=== PATIENT | female | born 2000 | race Caucasian/White ===

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

== ENCOUNTER 2019-08-05 10:19 | Emergency (ER) | payer BC ==
[~2019-08-05] VITALS: Ht 165 cm; Wt 63.0 kg
[~2019-08-05 10:19] MED LIST: PRD20T PO
[2019-08-05] MEDS ORDERED: AMOX500C2 PO (11:12)
--- NOTE | 2019-08-05 11:12 | ED EENT ---
History of Present Illness General Chief Complaint: Ear Problems Stated Complaint: R EAR PAIN Nursing Triage Note: PT CO OF R EAR PAIN STATES STARTED THIS AM, STATES HAD FLU OVER WEEKEND. DENIES FEVER TODAY STATES STARTED HURTING AROUND 0700 THIS AM RATES PAIN 8 Source: patient Exam Limitations: no limitations History of Present Illness Date Seen by Provider: Aug 05, 2019 Time Seen by Provider: 11:10 Initial Comments To ER with reports of right ear pain onset this morning, had nausea vomiting diarrhea over the weekend. Has taken nothing at home for the pain. Timing/Duration: abrupt Location: ear (R) Prearrival Treatment: no prearrival treatment Associated Symptoms: denies symptoms Allergies and Home Medications Allergies Coded Allergies: No Known Drug Allergies (Unverified , 11/13/18) Home Medications No Active Prescriptions or Reported Meds Patient Home Medication List Home Medication List Reviewed: Yes Review of Systems Review of Systems Constitutional: see HPI Eyes: No Symptoms Reported Ears: See HPI, Pain Nose: no symptoms reported Mouth: no symptoms reported Throat: no symptoms reported Respiratory: no symptoms reported Cardiovascular: no symptoms reported : No LMP: Jul 05, 2019 Musculoskeletal: no symptoms reported Skin: no symptoms reported Neurological: No Symptoms Reported Hematologic/Lymphatic: No Symptoms Reported Past Wdogcpx-Vlhwqx-Onrckr Hx Patient Social History Alcohol Use: Denies Use Recreational Drug Use: No Smoking Status: Never a Smoker 2nd Hand Smoke Exposure: No Recent Foreign Travel: No Contact w/Someone Who Travel: No Recent Infectious Disease Expo: No Recent Hopitalizations: No Ebola Symptoms: Denies Symptoms Listed Physical Abuse: No Sexual Abuse: No Seasonal Allergies Seasonal Allergies: No Past Medical History Orthopedic Respiratory: No Cardiac: No Neurological: No Genitourinary: No Gastrointestinal: No Musculoskeletal: No Endocrine: No HEENT: No Cancer: No Psychosocial: No Integumentary: No Blood Disorders: No Physical Exam Vital Signs Vital Signs - First Documented 08/05/19 10:45 Temp 36.8 Pulse 101 Resp 18 B/P (MAP) 116/77 Height, Weight, BMI Height: 5'6.00" Weight: 135lbs. 0oz. 61.780566yc; 23.00 BMI Method:Stated General Appearance: WD/WN, no apparent distress Eyes: bilateral eye normal inspection, bilateral eye PERRL, bilateral eye EOMI Ears: right ear TM red, right ear TM bulging; bilateral ear auricle normal, bilateral ear canal normal Neck: non-tender, full range of motion Respiratory: no respiratory distress, no accessory muscle use Neurologic/Psychiatric: alert, normal mood/affect, oriented x 3 Skin: normal color, warm/dry Progress/Results/Core Measures Results/Orders My Orders Orders - ROSHNI HUANG APRN Ibuprofen Tablet (Motrin Tablet) (08/05/19 11:15) Vital Signs/I&O 08/05/19 10:45 Temp 36.8 Pulse 101 Resp 18 B/P (MAP) 116/77 Departure Impression Primary Impression: Otitis media of right ear Qualified Codes: H66.001 - Acute suppurative otitis media without spontaneous rupture of ear drum, right ear Disposition: HOME, SELF-CARE Condition: Stable Departure-Patient Inst. Decision time for Depature: 11:12 Referrals: NO,LOCAL PHYSICIAN (PCP/Family) Primary Care Physician Patient Instructions: Ear Infections (Otitis Media) Add. Discharge Instructions: 1. Tylenol and appropriate for pain 2. Antibiotics as directed 3. Return to ER for any concerns. All discharge instructions reviewed with patient and/or family. Voiced understanding. Scripts Amoxicillin (Amoxicillin) 500 Mg Capsule 500 MG PO TID, #21 CAP 0 Refills Prov: ROSHNI HUANG APRN 08/05/19 ROSHNI HUANG APRN Aug 05, 2019 11:12 POS
[2019-08-05] MEDS ORDERED: IBUPROFEN 800 MG (MOTRIN) TAB PO ONE (11:15)
== END 2019-08-05 11:25 | disposition home or self-care (01) ==
LOC: EDUNIT# 10:19 → ER 10:20
DX: H66.91 Otitis media, unspecified, right ear (principal)
CPT/HCPCS: 99282

== ENCOUNTER 2019-08-11 09:09 | Emergency (ER) | payer BC ==
[~2019-08-11] VITALS: Ht 165 cm; Wt 67.7 kg
[~2019-08-11 09:09] MED LIST changes: +AMOX500C2 PO
--- NOTE | 2019-08-11 10:02 | NUR ---
NOTIFIED OF BUSY ER WITH DR IN WITH A SERIOUS PT. DENIES NEEDS AT THIS TIME.
--- NOTE | 2019-08-11 10:39 | NUR ---
PT RESTING IN BED AT THIS TIME.
[2019-08-11] MEDS ORDERED: CEFD300C3 PO (10:48)
[2019-08-11] MEDS ORDERED: PRD20T PO (10:48)
--- NOTE | 2019-08-11 10:48 | ED EENT ---
History of Present Illness General Chief Complaint: Ear Problems Stated Complaint: DOUBLE EAR INFECTION;TROUBLE HEARING Nursing Triage Note: ARRIVED VIA AMB TO ROOM 09. COMPLAINS OF ONGOING BILAT EAR INFECTION. STATES SHE IS HAVING PAIN AND TROUBLE HEARING. Source: patient Exam Limitations: no limitations History of Present Illness Date Seen by Provider: Aug 11, 2019 Time Seen by Provider: 10:45 Initial Comments R with bilateral earache, she was seen here on 08/05/19 and given amoxicillin, has been taking that but denies improvement. She has runny nose, sore throat. No fevers. She states that as a child she had to have her ears "drained" occasionally. Timing/Duration: abrupt Severity: moderate Location: ear (R), ear (L) Prearrival Treatment: prescription meds Associated Symptoms: denies symptoms Allergies and Home Medications Allergies Coded Allergies: No Known Drug Allergies (Unverified , 11/13/18) Home Medications Amoxicillin 500 Mg Capsule, 500 MG PO TID Prescribed by: ROSHNI HUANG on 08/05/19 1112 Patient Home Medication List Home Medication List Reviewed: Yes Review of Systems Review of Systems Constitutional: see HPI; No chills, No fever Eyes: No Symptoms Reported Ears: See HPI, Pain Nose: no symptoms reported Mouth: no symptoms reported Throat: no symptoms reported Respiratory: no symptoms reported Cardiovascular: no symptoms reported : No LMP: Jul 10, 2019 Musculoskeletal: no symptoms reported Past Rcguzjo-Wvyufx-Cliabx Hx Patient Social History Alcohol Use: Denies Use Recreational Drug Use: No Smoking Status: Never a Smoker 2nd Hand Smoke Exposure: No Recent Foreign Travel: No Contact w/Someone Who Travel: No Recent Infectious Disease Expo: No Recent Hopitalizations: No Seasonal Allergies Seasonal Allergies: No Past Medical History Surgeries: Yes Orthopedic Respiratory: No Cardiac: No Neurological: No Genitourinary: No Gastrointestinal: No Musculoskeletal: No Endocrine: No HEENT: No Cancer: No Psychosocial: No Integumentary: No Blood Disorders: No Physical Exam Vital Signs Vital Signs - First Documented 08/11/19 09:10 Temp 36.7 Pulse 65 Resp 16 B/P (MAP) 107/73 Pulse Ox 97 O2 Delivery Room Air Height, Weight, BMI Height: 5'6.00" Weight: 135lbs. 0oz. 61.434983do; 24.00 BMI Method:Stated General Appearance: WD/WN, no apparent distress Eyes: bilateral eye normal inspection, bilateral eye PERRL, bilateral eye EOMI Ears: bilateral ear auricle normal, bilateral ear canal normal, bilateral ear TM dull, bilateral ear TM red Neck: non-tender, full range of motion Gastrointestinal: non tender, soft Neurologic/Psychiatric: alert, normal mood/affect, oriented x 3 Progress/Results/Core Measures Results/Orders Vital Signs/I&O 08/11/19 09:10 Temp 36.7 Pulse 65 Resp 16 B/P (MAP) 107/73 Pulse Ox 97 O2 Delivery Room Air Departure Impression Primary Impression: Bilateral otitis media Qualified Codes: H66.003 - Acute suppurative otitis media without spontaneous rupture of ear drum, bilateral Disposition: HOME, SELF-CARE Condition: Stable Departure-Patient Inst. Decision time for Depature: 10:46 Referrals: PERRY GILLIS MD NO,LOCAL PHYSICIAN (PCP) Primary Care Physician Patient Instructions: Ear Infections (Otitis Media) Add. Discharge Instructions: 1. Stop the amoxicillin, start the new antibiotic 2. Steroids and antibiotic as directed. Call Dr. Gillis today to make an appointment to be seen soon as he can get you in. Scripts Prednisone (Prednisone) 20 Mg Tab 40 MG PO DAILY, #8 TAB 0 Refills Prov: ROSHNI HUANG LEHR TENDER 08/11/19 Cefdinir (Cefdinir) 300 Mg Capsule 300 MG PO BID, #14 CAP 0 Refills Prov: ROSHNI HUANG LEHR TENDER 08/11/19 ROSHNI HUANG LEHR TENDER Aug 11, 2019 10:48 POS
== END 2019-08-11 10:52 | disposition home or self-care (01) ==
LOC: EDUNIT# 09:09 → ER 09:10
DX: H66.93 Otitis media, unspecified, bilateral (principal)
CPT/HCPCS: 99282

== ENCOUNTER → 2020-06-13 | Outpatient (CLI) | payer BC, OTHER ==
[~2020-06-13] MED LIST changes: +CEFD300C3 PO
--- NOTE | 2020-06-13 13:09 | Diagnostic Imaging Report ---
INDICATION: Pain in the lateral right breast. FINDINGS: Sonographic interrogation of the area of pain in the lateral right breast was performed. There is heterogeneous breast tissue at this location but no discrete mass or fluid collection is seen. IMPRESSION: No sonographic abnormality is detected. ACR BI-RADS Category 1: Negative. Dictated by: Dictated on workstation # [id number]
== END ==
LOC: RAD 12:30
PROVIDERS: ATTEND Nurse Practitioner Family
DX: N63.10 Unspecified lump in the right breast, unspecified quadrant (principal)

== ENCOUNTER 2021-02-19 15:26 | Emergency (ER) | payer OTHER ==
[~2021-02-19] VITALS: Ht 165 cm; Wt 67.7 kg
[~2021-02-19 15:26] MED LIST changes: +LORazepam INJ 2 MG/ML (ATIVAN) VIAL ONE; +NS IV 1000 ML 1,000 ML ONE; +ONDANSETRON 4 MG/2 ML (SDV) Z0FRAN ONE
--- NOTE | 2021-02-19 15:41 | ED Respiratory ---
General Chief Complaint: Respiratory Problems Stated Complaint: TROUBLE BREATHING,ARMS CURLED,WEAK Source: patient Exam Limitations: no limitations History of Present Illness Date Seen by Provider: February 19, 2021 Time Seen by Provider: 15:38 Initial Comments To ER with reports of trouble breathing, arms curled in weakness nausea vomitin g. The symptoms were sudden in onset while she was sitting on the couch watching TV. Gentleman who is with her states she might be a little hung over but was feeling fine this morning. No history of this. Timing/Duration: constant Severity: severe Prior Episodes/Possible Cause: no prior episodes Modifying Factors: Improves With Rest Associated Symptoms: shortness of breath Allergies and Home Medications Allergies Coded Allergies: No Known Drug Allergies (Unverified , 11/13/18) Home Medications Amoxicillin 500 Mg Capsule, 500 MG PO TID Prescribed by: ROSHNI HUANG on 08/05/19 1112 Cefdinir 300 Mg Capsule, 300 MG PO BID Prescribed by: ROSHNI HUANG on 08/11/19 1048 Prednisone 20 Mg Tab, 40 MG PO DAILY Prescribed by: ROSHNI HUANG on 08/11/19 1048 Patient Home Medication List Home Medication List Reviewed: Yes Review of Systems Review of Systems Constitutional: see HPI EENTM: see HPI Respiratory: see HPI, dyspnea on exertion, short of breath Cardiovascular: no symptoms reported Genitourinary: no symptoms reported Musculoskeletal: no symptoms reported Skin: no symptoms reported Psychiatric/Neurological: No Symptoms Reported Hematologic/Lymphatic: No Symptoms Reported Immunological/Allergic: no symptoms reported Past Ckkhsim-Kuwsfh-Cgsvwa Hx Patient Social History 2nd Hand Smoke Exposure: No Recent Hopitalizations: No Seasonal Allergies Seasonal Allergies: No Past Medical History Surgeries: Yes Orthopedic Respiratory: No Cardiac: No Neurological: No Genitourinary: No Gastrointestinal: No Musculoskeletal: No Endocrine: No HEENT: No Cancer: No Psychosocial: No Integumentary: No Blood Disorders: No Physical Exam Vital Signs - First Documented 02/19/21 02/19/21 15:40 16:09 Temp 36.0 Pulse 95 Resp 20 B/P (MAP) 159/108 (125) Pulse Ox 100 O2 Delivery Room Air Capillary Refill : Height: 5'6.00" Weight: 135lbs. 0oz. 61.096214ij; 24.00 BMI Method:Stated General Appearance: WD/WN, other (Alert and oriented very pleasant very anxious appearing. She is hyperventilating with a heart rate of 105, tremors in both hands, carpal spasms bilaterally.) HEENT: PERRL/EOMI, normal ENT inspection Neck: non-tender, full range of motion Respiratory: no respiratory distress, no accessory muscle use Cardiovascular: no murmur, tachycardia Gastrointestinal: normal bowel sounds, non tender, soft Neurologic/Psychiatric: alert, normal mood/affect, oriented x 3 Skin: normal color, warm/dry . Heart rate 105 sinus, oxygen saturation 100% on room air. Blood pressure 159/100. Respiratory rate is 20. IV started, 0.5 mg lorazepam ordered. Progress/Results/Core Measures Suspected Sepsis SIRS Temperature: Pulse: Respiratory Rate: Laboratory Tests 02/19/21 15:35: White Blood Count 8.2 Blood Pressure / Mean: Laboratory Tests 02/19/21 15:35: Creatinine 0.82, Platelet Count 231, Total Bilirubin 1.2H Results/Orders Lab Results Laboratory Tests Test 02/19/21 15:35 02/19/21 16:58 Range/Units White Blood Count 8.2 4.3-11.0 10^3/uL Red Blood Count 4.89 3.80-5.11 10^6/uL Hemoglobin 14.7 11.5-16.0 g/dL Hematocrit 42 35-52 % Mean Corpuscular Volume 86 80-99 fL Mean Corpuscular Hemoglobin 30 25-34 pg Mean Corpuscular Hemoglobin Concent 35 32-36 g/dL Red Cell Distribution Width 11.9 10.0-14.5 % Platelet Count 231 130-400 10^3/uL Mean Platelet Volume 9.7 9.0-12.2 fL Immature Granulocyte % (Auto) 0 % Neutrophils (%) (Auto) 58 42-75 % Lymphocytes (%) (Auto) 36 12-44 % Monocytes (%) (Auto) 5 0-12 % Eosinophils (%) (Auto) 1 0-10 % Basophils (%) (Auto) 0 0-10 % Neutrophils # (Auto) 4.7 1.8-7.8 X 10^3 Lymphocytes # (Auto) 3.0 1.0-4.0 X 10^3 Monocytes # (Auto) 0.4 0.0-1.0 X 10^3 Eosinophils # (Auto) 0.1 0.0-0.3 10^3/uL Basophils # (Auto) 0.0 0.0-0.1 10^3/uL Immature Granulocyte # (Auto) 0.0 0.0-0.1 10^3/uL D-Dimer <= 0.27 0.00-0.49 UG/ML Sodium Level 139 135-145 MMOL/L Potassium Level 3.6 3.6-5.0 MMOL/L Chloride Level 103 98-107 MMOL/L Carbon Dioxide Level 18 L 21-32 MMOL/L Anion Gap 18 H 5-14 MMOL/L Blood Urea Nitrogen 10 7-18 MG/DL Creatinine 0.82 0.60-1.30 MG/DL Estimat Glomerular Filtration Rate > 60 BUN/Creatinine Ratio 12 Glucose Level 116 H 70-105 MG/DL Calcium Level 10.2 H 8.5-10.1 MG/DL Corrected Calcium 8.5-10.1 MG/DL Total Bilirubin 1.2 H 0.1-1.0 MG/DL Aspartate Amino Transf (AST/SGOT) 27 5-34 U/L Alanine Aminotransferase (ALT/SGPT) 20 0-55 U/L Alkaline Phosphatase 43 40-136 U/L Total Protein 7.7 6.4-8.2 GM/DL Albumin 5.1 H 3.2-4.5 GM/DL Serum Test, Qualitative NEGATIVE NEGATIVE My Orders Orders - ROSHNI HUANG APRN Cbc With Automated Diff (02/19/21 15:37) Hcg,Qualitative Serum (02/19/21 15:37) Comprehensive Metabolic Panel (02/19/21 15:37) Fibrin Degradation Products (02/19/21 15:37) Ua Culture If Indicated (02/19/21 15:37) Ed Iv/Invasive Line Start (02/19/21 15:37) Lorazepam Injection (Ativan Injection) (02/19/21 15:45) Ondansetron Injection (Zofran Injectio (02/19/21 15:45) Ns Iv 1000 Ml (Sodium Chloride 0.9%) (02/19/21 15:45) Ct Head Wo (02/19/21 15:51) Ketorolac Injection (Toradol Injection) (02/19/21 16:30) Ondansetron Injection (Zofran Injectio (02/19/21 16:30) Lorazepam Injection (Ativan Injection) (02/19/21 16:30) Prochlorperazine Injection (Compazine In (02/19/21 17:00) Diphenhydramine Injection (Benadryl Inje (02/19/21 17:00) Medications Given in ED Current Medications Medications Dose Ordered Sig/Karena Route Start Time Stop Time Status Last Admin Dose Admin Ketorolac Tromethamine 15 mg ONCE ONCE IVP 02/19/21 16:30 02/19/21 16:31 DC 02/19/21 16:32 15 MG Lorazepam 0.5 mg ONCE PRN IVP 02/19/21 15:45 02/19/21 15:50 0.5 MG Lorazepam 2 mg STK-MED ONCE .ROUTE 02/19/21 15:26 02/19/21 15:35 DC 02/19/21 15:38 0.5 MG Ondansetron HCl 4 mg ONCE ONCE IVP 02/19/21 16:30 02/19/21 16:31 DC 02/19/21 16:32 4 MG Ondansetron HCl 4 mg STK-MED ONCE .ROUTE 02/19/21 15:25 02/19/21 15:35 DC 02/19/21 15:38 4 MG Sodium Chloride 1,000 ml @ ud STK-MED ONCE .ROUTE 02/19/21 15:25 02/19/21 15:35 DC 02/19/21 15:39 999 MLS/HR Vital Signs/I&O 02/19/21 02/19/21 15:40 16:09 Temp 36.0 Pulse 95 57 Resp 20 15 B/P (MAP) 159/108 (125) 127/79 (95) Pulse Ox 100 99 O2 Delivery Room Air Capillary Refill : Departure Communication (Admissions) 8643-Now reports headache 8. Will get CT head noncontrast. nausea is no better. still alert. HR has fallen to 82. 1650-feeling better nausea is gone much more relaxed. No longer has spasms of the hands. Respiratory rate has slowed. Blood pressure has fallen to 112/75, heart rate is 62. She still complains of a headache rated 7 out of 10 midline parietal. She just received Toradol. Discussed with her we give her another 15 or 20 minutes to let the Toradol work before giving additional medications. She agrees with this plan. She is up to the bathroom. Impression Primary Impression: Headache Additional Impression: Nausea & vomiting Disposition: 01 HOME, SELF-CARE Condition: Stable Departure-Patient Inst. Referrals: NO,LOCAL PHYSICIAN (PCP/Family) Primary Care Physician ROSHNI HUANG APRN February 19, 2021 15:40
[2021-02-19 15:44] LABS: BASOPHILS % (AUTO) 0 % (0-10); EOSINOPHILS # (AUTO) 0.1 10^3/uL (0.0-0.3); EOSINOPHILS % (AUTO) 1 % (0-10); HEMATOCRIT 42 % (35-52); HEMOGLOBIN 14.7 g/dL (11.5-16.0); LYMPHOCYTES % (AUTO) 36 % (12-44); MEAN CORPUSCULAR HEMOGLOBIN 30 pg (25-34); MEAN CORPUSCULAR HGB CONC 35 g/dL (32-36); MEAN CORPUSCULAR VOLUME 86 fL (80-99); MEAN PLATELET VOLUME 9.7 fL (9.0-12.2); MONOCYTES # (AUTO) 0.4 X 10^3 (0.0-1.0); MONOCYTES % (AUTO) 5 % (0-12); NEUTROPHILS # (AUTO) 4.7 X 10^3 (1.8-7.8); NEUTROPHILS % (AUTO) 58 % (42-75); PLATELET COUNT 231 10^3/uL (130-400); WHITE BLOOD COUNT 8.2 10^3/uL (4.3-11.0)
[2021-02-19] MEDS ORDERED: ONDANSETRON 4 MG/2 ML (SDV) Z0FRAN IVP ONE ×2 (15:45→16:30)
[2021-02-19] MEDS ORDERED: LORazepam INJ 2 MG/ML (ATIVAN) VIAL IVP PRN ×2 (15:45→16:30)
[2021-02-19] MEDS ORDERED: NS IV 1000 ML 1,000 ML IV SCH (15:45)
[2021-02-19 15:54] LABS: ALBUMIN 5.1 GM/DL (3.2-4.5); CHLORIDE 103 MMOL/L (98-107); POTASSIUM 3.6 MMOL/L (3.6-5.0); SODIUM 139 MMOL/L (135-145)
[2021-02-19 15:56] LABS: CALCIUM 10.2 MG/DL (8.5-10.1)
[2021-02-19 15:57] LABS: GLUCOSE 116 MG/DL (70-105); TOTAL PROTEIN 7.7 GM/DL (6.4-8.2)
[2021-02-19 15:58] LABS: BILIRUBIN,TOTAL 1.2 MG/DL (0.1-1.0); CARBON DIOXIDE 18 MMOL/L (21-32)
[2021-02-19 16:00] LABS: ALKALINE PHOSPHATASE 43 U/L (40-136); CREATININE SERUM 0.82 MG/DL (0.60-1.30); GFR ESTIMATED > 60
[2021-02-19 16:01] LABS: BUN/CREATININE RATIO 12
[2021-02-19 16:03] LABS: ALANINE AMINOTRANSFERASE 20 U/L (0-55)
--- NOTE | 2021-02-19 16:29 | Diagnostic Imaging Report ---
PROCEDURE: CT head without contrast. TECHNIQUE: Multiple contiguous axial images were obtained through the brain without the use of intravenous contrast. Auto Exposure Controls were utilized during the CT exam to meet ALARA standards for radiation dose reduction. INDICATION: Head pain. Nausea. No priors. There is no intracranial hemorrhage, hydrocephalus, edema, mass, mass effect or evidence for an elevation of the intracerebral pressures. There are no abnormal extra-axial fluid collections. The midline structures are nondisplaced. The orbits, sinuses and calvarium appeared nonacute. There is no mastoid effusion. IMPRESSION: Unremarkable CT head. Dictated by: Dictated on workstation # [id number]
[2021-02-19] MEDS ORDERED: KETOROLAC 30 MG/ML VIAL IVP ONE (16:30)
[2021-02-19] MEDS ORDERED: PROCHLORPERAZINE 10 MG/2ML INJ (COMPAZINE) IV ONE (17:00)
[2021-02-19] MEDS ORDERED: diphenhydrAMINE 50 MG/ML INJ (BENADRYL) IVP ONE (17:00)
[2021-02-19 17:04] LABS: BILIRUBIN,URINE NEGATIVE (NEGATIVE); CLARITY,URINE CLEAR; COLOR,URINE YELLOW; GLUCOSE, URINE (UA) NEGATIVE (NEGATIVE); KETONES,URINE TRACE (NEGATIVE); LEUKOCYTE ESTERASE ,URINE NEGATIVE (NEGATIVE); NITRITE,URINE NEGATIVE (NEGATIVE); PH,URINE 7.5 (5-9); PROTEIN,URINE NEGATIVE (NEGATIVE)
[2021-02-19 17:11] LABS: BACTERIA,URINE TRACE /HPF; SQUAMOUS EPITHELIAL CELL,UR RARE /HPF; WBC,URINE RARE /HPF
[2021-02-19 17:33] VITALS: BP 113/80
== END 2021-02-19 17:34 | disposition home or self-care (01) ==
LOC: EDUNIT# 15:26 → ER 15:27
DX: R11.2 Nausea with vomiting, unspecified (principal); R51.9 Headache, unspecified; R00.0 Tachycardia, unspecified
CPT/HCPCS: 36415; 70450; 80053; 81000; 84703; 85025; 85379

== ENCOUNTER 2023-04-15 14:53 | Emergency (ER) | payer OTHER ==
[~2023-04-15] VITALS: Ht 165.1 cm; Wt 65.8 kg
[~2023-04-15 14:53] MED LIST changes: -LORazepam INJ 2 MG/ML (ATIVAN) VIAL ONE; -NS IV 1000 ML 1,000 ML ONE; -ONDANSETRON 4 MG/2 ML (SDV) Z0FRAN ONE
--- NOTE | 2023-04-15 15:10 | ED Abdominal Pain ---
General Chief Complaint: Back Problems Stated Complaint: RT SIDE AND LOWER BACK PAIN Source of Information: Patient Exam Limitations: No Limitations History of Present Illness Date Seen by Provider: Apr 15, 2023 Time Seen by Provider: 15:04 Initial Comments 22-year-old female who is otherwise healthy presents to the emergency department today for right lower quadrant abdominal pain. It also radiates to her right lateral abdomen. Symptoms started this morning and have been persistent throughout the day. She denies fevers or chills but has had decreased appetite. No changes in bowel or bladder habits. She denies any vaginal symptoms. Last menstrual cycle was 23 March and normal timing and bleeding for her. She has never had similar pains in the past. She took 1 g of Tylenol prior to arrival which did not really help. She has not had any abdominal surgeries. All other systems reviewed and negative except documented per HPI. Voice recognition software was used to help create this chart Allergies and Home Medications Allergies Coded Allergies: No Known Drug Allergies (Unverified , 11/13/18) Patient Home Medication List Home Medication List Reviewed: Yes Amoxicillin (Amoxicillin) 500 Mg Capsule, 500 MG PO TID Prescribed by: ROSHNI HUANG on 08/05/19 1112 Cefdinir (Cefdinir) 300 Mg Capsule, 300 MG PO BID Prescribed by: ROSHNI HUANG on 08/11/19 1048 Prednisone (Prednisone) 20 Mg Tab, 40 MG PO DAILY Prescribed by: ROSHNI HUANG on 08/11/19 1048 Review of Systems Review of Systems Constitutional: see HPI Past Tkbtfek-Mwyxos-Vmlhxx Hx Patient Social History Tobacco Use?: No Use of E-Cig and/or Vaping dev: No Substance use?: No Alcohol Use?: No Seasonal Allergies Seasonal Allergies: No Past Medical History Surgeries: Yes Orthopedic Respiratory: No Cardiac: No Neurological: No Genitourinary: No Gastrointestinal: No Musculoskeletal: No Endocrine: No HEENT: No Cancer: No Psychosocial: No Integumentary: No Blood Disorders: No Physical Exam Vital Signs Vital Signs - First Documented 04/15/23 15:01 Temp 36.9 Pulse 112 Resp 18 B/P (MAP) 126/89 (101) O2 Delivery Room Air Capillary Refill : Height/Weight/BMI Height: 5'6.00" Weight: 135lbs. 0oz. 61.093870to; 24.00 BMI Method:Stated General Appearance: WD/WN, mild distress (Appears to be in pain) HEENT: normal ENT inspection, pharynx normal Neck: non-tender, supple Respiratory: chest non-tender, lungs clear, normal breath sounds, no respiratory distress, no accessory muscle use Cardiovascular: no murmur, tachycardia Gastrointestinal: normal bowel sounds, soft, no organomegaly, tenderness (Tenderness palpation right lower abdomen with voluntary guarding. No rebound tenderness. No mass organomegaly no skin changes) Extremities: normal range of motion, non-tender, normal inspection, no pedal edema, no calf tenderness Back: normal inspection, no CVA tenderness, no vertebral tenderness Neurologic/Psychiatric: alert, normal mood/affect, oriented x 3 Skin: normal color, warm/dry Progress/Results/Core Measures Results/Orders Lab Results Laboratory Tests Test 04/15/23 15:07 04/15/23 15:15 Range/Units Urine Color YELLOW Urine Clarity CLOUDY Urine pH 6.0 5-9 Urine Specific [place] 1.020 1.016-1.022 Urine Protein 2+ H NEGATIVE Urine Glucose (UA) NEGATIVE NEGATIVE Urine Ketones TRACE H NEGATIVE Urine Nitrite POSITIVE H NEGATIVE Urine Bilirubin NEGATIVE NEGATIVE Urine Urobilinogen 0.2 < = 1.0 MG/DL Urine Leukocyte Esterase 2+ H NEGATIVE Urine RBC (Auto) 3+ H NEGATIVE Urine RBC 2-5 H /HPF Urine WBC TNTC H /HPF Urine Squamous Epithelial Cells RARE /HPF Urine Crystals NONE /LPF Urine Bacteria MODERATE H /HPF Urine Casts NONE /LPF Urine Mucus NEGATIVE /LPF Urine Culture Indicated YES Urine Test NEGATIVE NEGATIVE White Blood Count 13.8 H 4.3-11.0 10^3/uL Red Blood Count 4.57 3.80-5.11 10^6/uL Hemoglobin 13.7 11.5-16.0 g/dL Hematocrit 40 35-52 % Mean Corpuscular Volume 88 80-99 fL Mean Corpuscular Hemoglobin 30 25-34 pg Mean Corpuscular Hemoglobin Concent 34 32-36 g/dL Red Cell Distribution Width 11.9 10.0-14.5 % Platelet Count 195 130-400 10^3/uL Mean Platelet Volume 10.1 9.0-12.2 fL Immature Granulocyte % (Auto) 0 % Neutrophils (%) (Auto) 84 H 42-75 % Lymphocytes (%) (Auto) 8 L 12-44 % Monocytes (%) (Auto) 8 0-12 % Eosinophils (%) (Auto) 0 0-10 % Basophils (%) (Auto) 0 0-10 % Neutrophils # (Auto) 11.5 H 1.8-7.8 10^3/uL Lymphocytes # (Auto) 1.1 1.0-4.0 10^3/uL Monocytes # (Auto) 1.1 H 0.0-1.0 10^3/uL Eosinophils # (Auto) 0.0 0.0-0.3 10^3/uL Basophils # (Auto) 0.0 0.0-0.1 10^3/uL Immature Granulocyte # (Auto) 0.1 0.0-0.1 10^3/uL Sodium Level 139 135-145 MMOL/L Potassium Level 3.5 L 3.6-5.0 MMOL/L Chloride Level 104 98-107 MMOL/L Carbon Dioxide Level 21 21-32 MMOL/L Anion Gap 14 5-14 MMOL/L Blood Urea Nitrogen 10 7-18 MG/DL Creatinine 0.84 0.60-1.30 MG/DL Estimat Glomerular Filtration Rate 100 BUN/Creatinine Ratio 12 Glucose Level 88 70-105 MG/DL Calcium Level 9.6 8.5-10.1 MG/DL Corrected Calcium 9.2 8.5-10.1 MG/DL Total Bilirubin 1.8 H 0.1-1.0 MG/DL Aspartate Amino Transf (AST/SGOT) 18 5-34 U/L Alanine Aminotransferase (ALT/SGPT) 17 0-55 U/L Alkaline Phosphatase 45 40-136 U/L Total Protein 7.1 6.4-8.2 GM/DL Albumin 4.5 3.2-4.5 GM/DL Lipase 27 8-78 U/L My Orders Orders - NEHEMIAS UREÑA DO Lipase (04/15/23 15:09) Ct Abdomen/Pelvis W (04/15/23 15:09) Comprehensive Metabolic Panel (04/15/23 15:09) Cbc With Automated Diff (04/15/23 15:09) Ns Iv 1000 Ml (Sodium Chloride 0.9%) (04/15/23 15:15) Fentanyl Inj (Sublimaze Injection) (04/15/23 15:15) Ondansetron Injection (Zofran Injectio (04/15/23 15:15) Ketorolac Injection (Toradol Injection) (04/15/23 15:15) Iohexol Injection (Omnipaque 350 Mg/Ml 1 (04/15/23 15:45) Received Contrast (Hold Metformin- Contr (04/15/23 15:45) Ns (Ivpb) 100 Ml (Sodium Chloride 0.9% 1 (04/15/23 15:45) Medications Given in ED Current Medications Medications Dose Ordered Sig/Karena Route Start Time Stop Time Status Last Admin Dose Admin Fentanyl Citrate 50 mcg ONCE ONCE IVP 04/15/23 15:15 04/15/23 15:16 DC 04/15/23 15:22 50 MCG Iohexol 100 ml ONCE ONCE IV 04/15/23 15:45 04/15/23 15:51 DC 04/15/23 15:53 75 ML Ketorolac Tromethamine 15 mg ONCE ONCE IVP 04/15/23 15:15 04/15/23 15:16 DC 04/15/23 15:22 15 MG Ondansetron HCl 4 mg ONCE ONCE IVP 04/15/23 15:15 04/15/23 15:16 DC 04/15/23 15:22 4 MG Sodium Chloride 100 ml ONCE ONCE IV 04/15/23 15:45 04/15/23 15:51 DC 04/15/23 15:53 80 ML Vital Signs/I&O 04/15/23 15:01 Temp 36.9 Pulse 112 Resp 18 B/P (MAP) 126/89 (101) O2 Delivery Room Air Departure Communication (Admissions) Initial differential diagnosis includes UTI, pyelonephritis, appendicitis, ovarian cyst, ovarian torsion, pelvic inflammatory disease, , ectopic . Urine is positive for urinary tract infection, likely early pyelonephritis given her symptoms up into her flank slightly. CT scan is negative for appendicitis, ovarian cyst which makes ovarian torsion less likely. No evidence of pelvic inflammatory disease, she has no concerns for STI and declines testing. She was given IV fentanyl and Toradol with improvement in her pain. She was also given IV Zofran with improvement in her nausea. test is negative. The remainder of her labs are significant only for mild hypokalemia and her chemistry and mild leukocytosis and her CBC. She does have a slight left shift as well. She is afebrile and nontoxic. She be discharged home with oral antibiotics and otherwise stable condition. Impression Primary Impression: UTI (urinary tract infection) Qualified Codes: N30.01 - Acute cystitis with hematuria Disposition: HOME, SELF-CARE Condition: Stable Departure-Patient Inst. Referrals: NO,LOCAL PHYSICIAN (PCP/Family) Primary Care Physician Patient Instructions: Urinary Tract Infection, Adult ED Add. Discharge Instructions: You are seen in the emergency department today for right-sided abdominal pain. You have a urinary tract infection. Your CT scan is unremarkable. There is no evidence for appendicitis, ovarian issues, kidney stone. I recommend you increase your fluids at home, rest as needed. Take the antibiotics as prescribed until they are gone. As discussed this may interact with control she will need to use other forms of contraception during use and for a few days after. Return to the emergency department for any severe concerns. Follow-up with your primary doctor for any nonemergent needs All discharge instructions reviewed with patient and/or family. Voiced understanding. Scripts Ciprofloxacin HCl (Ciprofloxacin HCl) 500 Mg Tablet 500 MG PO BID for 7 Days, #14 TAB Prov: NEHEMIAS UREÑA DO 04/15/23 NEHEMIAS UREÑA DO Apr 15, 2023 15:10
[2023-04-15] MEDS ORDERED: NS IV 1000 ML 1,000 ML IV SCH (15:15)
[2023-04-15] MEDS ORDERED: ONDANSETRON 4 MG/2 ML (SDV) Z0FRAN IVP ONE (15:15)
[2023-04-15] MEDS ORDERED: fentaNYL INJ 100 MCG/2 ML AMP IVP ONE (15:15)
[2023-04-15] MEDS ORDERED: KETOROLAC 15 MG/ML VIAL IVP ONE (15:15)
[2023-04-15 15:24] LABS: BILIRUBIN,URINE NEGATIVE (NEGATIVE); CLARITY,URINE CLOUDY; COLOR,URINE YELLOW; GLUCOSE, URINE (UA) NEGATIVE (NEGATIVE); KETONES,URINE TRACE (NEGATIVE); LEUKOCYTE ESTERASE ,URINE 2+ (NEGATIVE); NITRITE,URINE POSITIVE (NEGATIVE); PROTEIN,URINE 2+ (NEGATIVE)
[2023-04-15 15:25] LABS: BASOPHILS % (AUTO) 0 % (0-10); EOSINOPHILS % (AUTO) 0 % (0-10); HEMATOCRIT 40 % (35-52); HEMOGLOBIN 13.7 g/dL (11.5-16.0); LYMPHOCYTES # (AUTO) 1.1 10^3/uL (1.0-4.0); LYMPHOCYTES % (AUTO) 8 % (12-44); MEAN CORPUSCULAR HEMOGLOBIN 30 pg (25-34); MEAN CORPUSCULAR HGB CONC 34 g/dL (32-36); MEAN CORPUSCULAR VOLUME 88 fL (80-99); MEAN PLATELET VOLUME 10.1 fL (9.0-12.2); MONOCYTES # (AUTO) 1.1 10^3/uL (0.0-1.0); MONOCYTES % (AUTO) 8 % (0-12); NEUTROPHILS # (AUTO) 11.5 10^3/uL (1.8-7.8); NEUTROPHILS % (AUTO) 84 % (42-75); PLATELET COUNT 195 10^3/uL (130-400); WHITE BLOOD COUNT 13.8 10^3/uL (4.3-11.0)
[2023-04-15 15:34] LABS: BACTERIA,URINE MODERATE /HPF; SQUAMOUS EPITHELIAL CELL,UR RARE /HPF; WBC,URINE TNTC /HPF
[2023-04-15 15:34] LABS: ALBUMIN 4.5 GM/DL (3.2-4.5)
[2023-04-15 15:35] LABS: POTASSIUM 3.5 MMOL/L (3.6-5.0)
[2023-04-15 15:36] LABS: CALCIUM 9.6 MG/DL (8.5-10.1)
[2023-04-15 15:37] LABS: TOTAL PROTEIN 7.1 GM/DL (6.4-8.2)
[2023-04-15 15:39] LABS: BILIRUBIN,TOTAL 1.8 MG/DL (0.1-1.0)
[2023-04-15 15:40] LABS: CREATININE SERUM 0.84 MG/DL (0.60-1.30)
[2023-04-15] MEDS ORDERED: HOLD METFORMIN - RECEIVED CONTRAST 20 ML VIAL IV SCH (15:45)
[2023-04-15] MEDS ORDERED: NS 100 ML (IVPB) BAG IV ONE (15:45)
[2023-04-15] MEDS ORDERED: IOHEXOL 350 MG/ML 100 ML (OMNIPAQUE 350) VIAL IV ONE (15:45)
--- NOTE | 2023-04-15 16:02 | Diagnostic Imaging Report ---
EXAMINATION: CT abdomen and pelvis with intravenous contrast. TECHNIQUE: Multiple contiguous axial images were obtained through the abdomen and pelvis after the uneventful administration of intravenous contrast. All CT scans use one or more of the following dose optimizing techniques: automated exposure control, MA and/or KvP adjustment based on patient size and exam type or iterative reconstruction. HISTORY: RLQ pain COMPARISON: None available. FINDINGS: Lung bases: The lung bases are clear. Solid organs: The liver is normal without focal lesion. The gallbladder is normal. There is no biliary ductal dilation. Pancreas is normal. Spleen is normal. Adrenal glands are normal. The kidneys are normal without hydronephrosis. Bowel: The stomach and small bowel are normal without obstruction. The colon is normal. There are no secondary signs of acute appendicitis. Peritoneum: There is no intraperitoneal free fluid or free air. No suspicious lymphadenopathy. Vasculature: Normal without aneurysm. Musculoskeletal: No suspicious osseous lesion or compression fracture. 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 Pelvis: The uterus and adnexa are normal. The urinary bladder is normal. IMPRESSION: 1. No acute abnormality in the abdomen or pelvis. Dictated by: Dictated on workstation # [id number]
[2023-04-15] MEDS ORDERED: CIPROFLOXACIN 500 MG (CIPRO) TABLET PO STA (16:07)
[2023-04-15] MEDS ORDERED: CIPR500T5 PO (16:09)
[2023-04-15 16:15] VITALS: BP 133/75
== END 2023-04-15 16:15 | disposition home or self-care (01) ==
LOC: EDUNIT# 14:53 → ER 14:56
DX: N39.0 Urinary tract infection, site not specified (principal); E87.6 Hypokalemia
CPT/HCPCS: 36415; 74177; 80053; 81000; 83690; 84703; 85025; 87077; 87088; 87186